=== PATIENT | female | born 2000 | race Native Hawaiian/Other Pacific Islander ===

== ENCOUNTER 2021-06-03 03:20 | Emergency (ER) | payer BC ==
[~2021-06-03] VITALS: Ht 157.5 cm; Wt 104.3 kg
[2021-06-03 04:11] VITALS: BP 144/74; TEMP 97.8
== END 2021-06-03 04:41 | disposition home or self-care (01) ==
LOC: ED 03:20
DX: R07.89 Other chest pain (principal)
CPT/HCPCS: 93005; 96372; 99283; J1885

== ENCOUNTER 2021-08-02 18:16 | Emergency (ER) | payer BC ==
[~2021-08-02] VITALS: Ht 157.5 cm; Wt 104.3 kg
[2021-08-02 18:26] VITALS: BP 135/66; TEMP 100.1
== END 2021-08-02 19:35 | disposition home or self-care (01) ==
LOC: ED 18:16
DX: R30.0 Dysuria (principal); E66.01 Morbid (severe) obesity due to excess calories
CPT/HCPCS: 96372; 99283; J0696